=== PATIENT | female | born 1955 | race Caucasian/White ===

== ENCOUNTER 2023-12-18 06:22 | Day surgery (SDC) | payer OTHER, SELFPAY ==
[2023-12-16 09:34] VITALS: BMI 40.2
--- NOTE | 2023-12-16 14:52 | P.CONAN_ITS ---
HPI - Anesthesia Eval Consult details Narrative: 68yo F for Colonoscopy [facility] Past Medical History Medical History (Updated 12/16/23 @ 09:39 by Natalie Norris, RN) Hypothyroid Arthritis Diabetes HTN (hypertension) Surgical History Surgical History (Updated 12/16/23 @ 09:34 by Natalie Norris, SHANELL) H/O colonoscopy Meds Allergies Allergy/AdvReac Type Severity Reaction Status Date / Time No Known Allergies Allergy Verified 12/16/23 09:34 Home Medications Medication Instructions Recorded Confirmed Last Taken Type cholecalciferol (vitamin D3) 50 50 mcg PO DAILY 12/16/23 12/16/23 Unknown History mcg (2,000 unit) capsule (Vitamin D3) divalproex 500 mg tablet,extended 1,000 mg PO BEDTIME 12/16/23 12/16/23 Unknown History release 24 hr glimepiride 4 mg tablet 4 mg PO QAM 12/16/23 12/16/23 Unknown History hydrochlorothiazide 12.5 mg tablet 12.5 mg PO DAILY 12/16/23 12/16/23 Unknown History insulin degludec 200 unit/mL (3 72 unit subcut DAILY 12/16/23 12/16/23 Unknown History mL) subcutaneous pen (Tresiba FlexTouch U-200 insulin) levothyroxine 50 mcg tablet 50 mcg PO DAILY 12/16/23 12/16/23 Unknown History losartan 100 mg tablet 100 mg PO DAILY 12/16/23 12/16/23 Unknown History metformin 500 mg tablet 500 mg PO BID 12/16/23 12/16/23 Unknown History metoprolol tartrate 25 mg tablet 25 mg PO BID 12/16/23 12/16/23 Unknown History Exam Height,Weight and Vital Signs: Height 5 ft 10 in Weight 127.006 kg Assessment and Plan Assessment Anesthesia Assessment: Chart Reviewed
[2023-12-18 06:58] VITALS: BMI 40.3
[2023-12-18 07:14] VITALS: BP 139/67; PULSE 97; RESP 16; TEMP 37.3; O2SAT 96
--- NOTE | 2023-12-18 07:20 | P.CONAN_ITS ---
[facility] Past Medical History Medical History Depression Hypothyroid Arthritis Diabetes HTN (hypertension) Functional capacity: independent ambulation Patient : No Family History Family history of problems with anesthesia: No Surgical History Surgical History History of oral surgery H/O colonoscopy History of Problems with Anesthesia: No Social History Social History Patient Tobacco Use Status: Never used Tobacco Use of substances other than those prescribed or required for medical reasons: No Are you DNR?: No Advance Directives: No Advance Directives Information Provided: Yes Meds Allergies Allergy/AdvReac Type Severity Reaction Status Date / Time No Known Allergies Allergy Verified 12/16/23 09:34 Active Medications: Current Medications Lactated Ringer's (Lr) 1,000 mls @ 100 mls/hr IVCONT .Q10H [facility] Home Medications Medication Instructions Recorded Confirmed Last Taken Type cholecalciferol (vitamin D3) 50 50 mcg PO DAILY 12/16/23 12/16/23 Unknown History mcg (2,000 unit) capsule (Vitamin D3) divalproex 500 mg tablet,extended 1,000 mg PO BEDTIME 12/16/23 12/16/23 Unknown History release 24 hr glimepiride 4 mg tablet 4 mg PO QAM 12/16/23 12/16/23 Unknown History hydrochlorothiazide 12.5 mg tablet 12.5 mg PO DAILY 12/16/23 12/16/23 Unknown History insulin degludec 200 unit/mL (3 72 unit subcut DAILY 12/16/23 12/16/23 Unknown History mL) subcutaneous pen (Tresiba FlexTouch U-200 insulin) levothyroxine 50 mcg tablet 50 mcg PO DAILY 12/16/23 12/16/23 Unknown History losartan 100 mg tablet 100 mg PO DAILY 12/16/23 12/16/23 Unknown History metformin 500 mg tablet 500 mg PO BID 12/16/23 12/16/23 Unknown History metoprolol tartrate 25 mg tablet 25 mg PO BID 12/16/23 12/16/23 Unknown History Exam Height,Weight and Vital Signs: Height 5 ft 10 in Weight 127.459 kg Last Vital Signs Temp 99.1 F 12/18/23 07:14 Pulse 97 12/18/23 07:14 Resp 16 12/18/23 07:14 BP 139/67 12/18/23 07:14 Pulse Ox 96 12/18/23 07:14 O2 Del Method Room Air 12/18/23 07:14 Airway Mallampati Class: III TM Dist: >3cm Neck ROM: Full Heart: RRR Lungs: CTA Assessment and Plan Assessment Anesthesia Assessment: Anesthesia Plan Discussed Final Anesthetic Review Family History of Problems with Anesthesia: No History of Problems with Anesthesia: No NPO: Yes ASA Class: III Final Preanesthetic Review: Meds/Allgs Chart Reviewed, Consent Obtained/Reviewed and Anes Risks/Benef Reviewed Patient Risk: Intermediate Procedure Risk: Low Anesthetic Plan Anesthetic Plan: MAC: Disposition: Standard PACU
--- NOTE | 2023-12-18 07:20 | P.HPSUR_ITS ---
Pre-Procedural Eval Section A - 24 Hr Update-Section A only Date of Service: 12/18/23 Section B - Complete if H&P > 30 days Chief Complaint: Encounter for screening for malignant neoplasm of Details of Present Illness: see H&P no changes Relevant Family History (Specify if Yes): No Relevant Social History: None Present Medications: see Short Stay Collaborative assessment Medical History: No relevant PMH History of Previous Operations: No relevant previous surgery Allergies: Allergies Allergy/AdvReac Type Severity Reaction Status Date / Time No Known Allergies Allergy Verified 12/16/23 09:34 Review of Systems Sugical H&P ROS: Negative: Constitution, Cardiovascular, Respiratory, Neurological, Psychiatric, Hem-Onc, Allergic/Immunologic, Gastrointestinal, Genitourinary, Musculoskeletal, Integumentary, Endocrine and Eyes/Ears/No se/Throat Exam Surgical H&P Exam: Normal: HEENT, Normal: Heart, Normal: Lungs, Normal: Extremities, Normal: Abdomen, Normal: Skin and Normal: Neurological Plan Diagnosis/Plan: Unchanged I have reviewed the history and physical and performed a pertinent physical examination on my patient. No changes have occurred unless specified. Time Spent With Patient Time: Total time managing care of this patient today ____ minutes.
[2023-12-18 07:24] LABS: Glucose, Whole Blood 97 mg/dL (60-115)
[2023-12-18] MEDS: Lactated Ringers 1,000 ML 100 ML IVCONT (07:25)
[2023-12-18 08:33] VITALS: BP 134/68; PULSE 69; RESP 14; TEMP 36.2; O2SAT 96
[2023-12-18 08:56] VITALS: BP 126/63; PULSE 71; RESP 18; TEMP 36.2; O2SAT 100
--- NOTE | 2023-12-18 08:58 | OP_ITS ---
DATE OF SERVICE: 12/18/2023 SURGEON: Cayetano Smith MD INDICATIONS: Colon cancer screening. PREOPERATIVE DIAGNOSIS: POSTOPERATIVE DIAGNOSIS: PROCEDURE PERFORMED: Colonoscopy to the cecum with snare polypectomy and biopsy. ESTIMATED BLOOD LOSS: COMPLICATIONS: ANESTHESIA: Monitored anesthesia care. ASSISTANTS: SPECIMENS: DESCRIPTION OF PROCEDURE: A history and physical performed. The risks and benefits of the procedure explained to the patient. Informed consent was obtained. The patient was placed in the left lateral decubitus position. A digital rectal exam was performed and was found to be normal. The Olympus pediatric videocolonoscope was introduced into the rectum and advanced to the cecum. The cecum was identified by transillumination, palpation, and identification of ileocecal valve. Examination was performed. The scope was removed. She tolerated the procedure well and was returned to the recovery room in stable condition. Abdominal wall pressure was used to assist in advancement of the scope due to looping in the sigmoid. FINDINGS: In the cecum, was an 8 mm polyp, which was removed with the snare and biopsy forceps. In the right colon, was a less than 5 mm polyp, which was removed with biopsy forceps. At the transverse colon, was a 5 mm polyp, which was removed with a snare. This polyp was not recovered for technical reasons. No other polyps were identified. There was mild sigmoid diverticulosis. There was some liquid stool in the right colon and proximal transverse colon, which limited the sensitivity of the examination for detection of small polyps. This was washed and suctioned. No other polyps were identified. Retroflexed examination was normal. IMPRESSION: Colon polyps. RECOMMENDATION: Follow up the biopsy results. MD KEISHA Villafuerte/JUAN DIEGOL / [id number] MTDShirley
--- NOTE | 2023-12-18 09:15 | PM.OP ---
Brief Operative Note Date of Service: 12/18/23 Pre-op diagnosis: screening Post-op diagnosis: same Procedure: colonosocpy Surgeon: Cayetano Smith MD Anesthesia: MAC Was an Supervisor Composing Room used for this Procedure?: No Estimated blood loss (mL): 2 Pathology: other Condition: stable Disposition: PACU
--- NOTE | 2023-12-18 10:25 | HO.POSTANES ---
Post Anesthesia Evaluation Post Anesthesia Evaluation Date of Service: 12/18/23 Vital Signs: Vital Signs Temp Pulse Resp BP Pulse Ox O2 Del Method O2 Flow Rate 12/18/23 08:56 97.2 F 71 18 126/63 100 Room Air 12/18/23 08:33 97.2 F 69 14 134/68 96 Simple Mask 6 12/18/23 07:14 99.1 F 97 16 139/67 96 Room Air Anesthesia: Monitored Mental Status: Awake Pain Control: Satisfactory Nausea/Vomiting: None Hydration: Adequate Anesthesia-Related Issues: No Anes. Related Issues
== END 2023-12-18 09:11 | disposition home or self-care (01) ==
PROVIDERS: Visit Provider Internal Medicine Gastroenterology
PROC: 0DJD8ZZ Inspection of Lower Intestinal Tract, Via Natural or Artificial Opening Endoscopic (ICD-10-PCS; CPT 45378; principal; 2023-12-18 07:30)
DX: Z12.11 Encounter for screening for malignant neoplasm of colon (principal); Z86.010 Personal history of colon polyps; D12.0 Benign neoplasm of cecum; D12.2 Benign neoplasm of ascending colon; I10 Essential (primary) hypertension; E11.9 Type 2 diabetes mellitus without complications; M17.0 Bilateral primary osteoarthritis of knee; Z91.81 History of falling; Z79.85 Long-term (current) use of injectable non-insulin antidiabetic drugs; Z79.84 Long term (current) use of oral hypoglycemic drugs; Z79.899 Other long term (current) drug therapy
CPT/HCPCS: 45385; 45380; 82947; 88305; J2704